=== PATIENT | male | born 1960 | race Caucasian/White ===

== ENCOUNTER 2025-05-10 09:24 | Observation (INO) ==
[2025-05-10] MEDS: morphine 4 MG/ML VIAL IV ONE (09:57)
[2025-05-10] MEDS: COLD 0.9 % SODIUM CHLORIDE 1,000 ML IV SCH (09:57)
[2025-05-10] MEDS: cefTRIAXone 1 GM VIAL IV SCH (09:59)
[2025-05-10] MEDS: VANCOMYCIN 1,500 MG in 0.9 % SODIUM CHLORIDE 500 ML IV ONE (10:07)
[2025-05-10] MEDS: VANCOMYCIN PER PHARMACY IV ONE (10:08)
[2025-05-10 10:18] LABS: Basophils # (Auto) 0.05 K/mcL (0.00-0.30); Basophils % (Auto) 0.4 % (0.0-2.0); Eosinophils # (Auto) 0.23 K/mcL (0.00-0.70); Eosinophils % (Auto) 1.7 % (0.0-7.0); Hemoglobin 16.7 g/dL (13.7-17.5); Lymphocytes # (Auto) 0.88 K/mcL (1.50-4.80); Lymphocytes % (Auto) 6.3 % (15.5-49.0); Mean Cell Volume 97.4 fL (80.0-100.0); Mean Corpuscular HGB Conc 34.1 g/dL (31.0-36.0); Mean Platelet Volume 10.8 fL (8.8-12.5); Monocytes # (Auto) 1.04 K/mcL (0.10-0.90); Monocytes % (Auto) 7.5 % (1.0-12.0); Neutrophils % (Auto) 83.8 % (38.0-78.0); Platelet Count 142 K/mcL (140-440); RBC 5.03 M/mcL (4.63-6.08); Red Cell Distribution Width 12.9 % (11.5-14.5); WBC 13.9 K/mcL (4.5-11.0)
[2025-05-10 10:59] LABS: ALT/SGPT 14 U/L (<40); AST/SGOT 17 U/L (<40); Albumin 3.4 gm/dL (3.2-5.2); Albumin/Globulin Ratio 1.1 (1.0-2.3); Alkaline Phosphatase 62 U/L (39-117); Bilirubin,Total 0.9 mg/dL (0.1-1.0); Blood Urea Nitrogen 17 mg/dL (8-23); Calcium 9.4 mg/dL (8.6-10.4); Carbon Dioxide 25 mmol/L (22-30); Chloride 98 mmol/L (96-108); Glomerular Filtration Rate 95; Glucose 157 mg/dL (70-105); Potassium 3.9 mmol/L (3.3-5.1); Sodium 136 mmol/L (133-145)
[2025-05-10] MEDS ORDERED: LABETALOL HCL 20 MG/4 ML VIAL IV PRN (15:52)
[2025-05-10] MEDS ORDERED: POTASSIUM CHLORIDE 40 MEQ in DEXTROSE 5% IN WATER 500 ML IV PRN (15:52)
[2025-05-10] MEDS ORDERED: DEXTROSE 31 GM ORAL.SUSP PO PRN (15:52)
[2025-05-10] MEDS ORDERED: HYDROcodone/APAP 5/325MG TABLET PO PRN (15:52)
[2025-05-10] MEDS ORDERED: VANCOMYCIN PER PHARMACY IV SCH (15:52)
[2025-05-10] MEDS ORDERED: ACETAMINOPHEN 325 MG TABLET PO PRN (15:52)
[2025-05-10] MEDS ORDERED: DEXTROSE 50% 50 ML VIAL IV PRN (15:52)
[2025-05-10] MEDS ORDERED: POTASSIUM CHLORIDE 20 MEQ TABLET PO PRN ×2 (15:52)
[2025-05-10] MEDS ORDERED: POLYETHYLENE GLYCOL 3350 17 GM PACKET PO PRN (15:52)
[2025-05-10] MEDS ORDERED: METOCLOPRAMIDE 10 MG/2 ML VIAL IV PRN (15:52)
[2025-05-10] MEDS ORDERED: ONDANSETRON 4 MG/2 ML VIAL IV PRN (15:52)
[2025-05-10] MEDS ORDERED: SENNOSIDES 1 TABLET PO PRN (15:52)
[2025-05-10] MEDS ORDERED: IPRATROPIUM/ALBUTEROL 3 ML AMPUL.NEB NEB PRN (15:52)
[2025-05-10] MEDS: INSULIN LISPRO 1 UNIT/0.01 ML UNIT SQ SCH (17:02)
[2025-05-10] MEDS: 0.9 % SODIUM CHLORIDE 10 ML SYRINGE IV SCH (17:02)
[2025-05-10 17:03] LABS: Hemoglobin A1C 5.6 % Hgb (4.0-6.0)
[2025-05-10] MEDS: morphine 4 MG/ML VIAL IV PRN (17:15)
[2025-05-10] MEDS: PREGABALIN 100 MG CAPSULE PO SCH (20:43)
[2025-05-10] MEDS: DOCUSATE SODIUM 100 MG CAPSULE PO SCH (20:43)
[2025-05-10] MEDS: VANCOMYCIN 1,500 MG in 0.9 % SODIUM CHLORIDE 500 ML IV SCH (21:32)
[2025-05-11] MEDS: OMEPRAZOLE 20 MG CAPSULE PO SCH (07:28)
[2025-05-11 08:20] LABS: Basophils # (Auto) 0.03 K/mcL (0.00-0.30); Basophils % (Auto) 0.3 % (0.0-2.0); Eosinophils # (Auto) 0.13 K/mcL (0.00-0.70); Eosinophils % (Auto) 1.2 % (0.0-7.0); Hematocrit 43.1 % (40.1-51.0); Hemoglobin 14.6 g/dL (13.7-17.5); Lymphocytes # (Auto) 1.02 K/mcL (1.50-4.80); Lymphocytes % (Auto) 9.3 % (15.5-49.0); Mean Cell Volume 98.4 fL (80.0-100.0); Mean Corpuscular HGB Conc 33.9 g/dL (31.0-36.0); Mean Platelet Volume 10.7 fL (8.8-12.5); Monocytes # (Auto) 0.82 K/mcL (0.10-0.90); Monocytes % (Auto) 7.5 % (1.0-12.0); Neutrophils % (Auto) 81.3 % (38.0-78.0); Platelet Count 163 K/mcL (140-440); RBC 4.38 M/mcL (4.63-6.08); Red Cell Distribution Width 12.8 % (11.5-14.5)
[2025-05-11] MEDS: ENOXAPARIN 40 MG/0.4 ML SYRINGE SQ SCH (08:21)
[2025-05-11] MEDS: cefTRIAXone 1 GM VIAL IV SCH ×3 (08:22→10:21)
[2025-05-11] MEDS: LOSARTAN 50 MG TABLET PO SCH (08:22)
[2025-05-11] MEDS: HYDROCHLOROTHIAZIDE 25 MG TABLET PO SCH (08:22)
[2025-05-11 08:48] LABS: ALT/SGPT 11 U/L (<40); AST/SGOT 13 U/L (<40); Albumin 2.7 gm/dL (3.2-5.2); Alkaline Phosphatase 48 U/L (39-117); Bilirubin,Direct 0.3 mg/dL (<0.3); Bilirubin,Total 0.6 mg/dL (0.1-1.0); Blood Urea Nitrogen 11 mg/dL (8-23); Calcium 8.4 mg/dL (8.6-10.4); Carbon Dioxide 24 mmol/L (22-30); Chloride 103 mmol/L (96-108); Globulin 2.7 gm/dL (2.2-3.7); Glomerular Filtration Rate 107; Glucose 119 mg/dL (70-105); Lactate Dehydrogenase 165 U/L (135-225); Phosphorous 2.9 mg/dL (2.5-4.5); Sodium 137 mmol/L (133-145); Triglycerides 72 mg/dL (<150); Uric Acid 3.9 mg/dL (2.5-8.0)
[2025-05-11] MEDS: DOXYCYCLINE HYCLATE 100 MG TABLET.ORL PO SCH (10:21)
[2025-05-11] MEDS: MAGNESIUM SULFATE 2 GM/50 ML BAG IV PRN (10:21)
[2025-05-11 12:05] VITALS: TEMP 98; O2SAT 97
[2025-05-12] MEDS ORDERED: cefTRIAXone 2 GM in DEXTROSE 5% IN WATER 50 ML IV SCH (09:00)
== END 2025-05-11 13:48 | disposition left against medical advice (07) ==
LOC: ED 09:24 → INTOOBSV 15:51 → MEDSUR 15:51
PROVIDERS: ADMIT Internal Medicine; ATTEND Internal Medicine